=== PATIENT | female | born 1935 | race Caucasian/White ===

== ENCOUNTER → 2016-10-07 09:44 | Outpatient (CLI) | payer MEDICARE, BC | END | disposition home or self-care (01) | LOC: D.NM 09:44 | DX: C50.911 Malignant neoplasm of unspecified site of right female breast (principal) ==

== ENCOUNTER → 2017-05-04 08:49 | Outpatient (CLI) | payer MEDICARE, BC ==
[~2017-05-04 08:49] MED LIST: ANASTROZOLE; BAYER CHEWABLE81 MG PO; COREG 3.1253.125 MG PO; FISH OIL 1,0001 CA1 PO; HYDROCHLOROTH12.5 M1 PO; IBRANCE; NEXIUM20 MG PO; PRINIVIL20 MG PO; ZOCOR40 MG PO
--- NOTE | 2017-05-11 12:47 | EC ---
PATIENT:RACHEL ESCALANTE DATE OF SERVICE: 05/04/17 SEX: F MEDICAL RECORD: [id number] DATE OF : 35 [facility] AGE OF PATIENT: 81 ADMISSION DATE: 05/04/17 REFERRING PHYSICIAN: INTERPRETING PHYSICIAN: PATO JAMISON MD ECHOCARDIOGRAM REPORT ECHO CHARGES 4 ECHO COMPLETE CLINICAL DIAGNOSIS: CAD,HTN,AORTIC ABD ANEURSYM,CAROTID STENOSIS ECHOCARDIOGRAPHIC MEASUREMENTS (adult normal given) AC root (d.<3.7cm) 2.7 cm LV Septum d (<1.2 cm> 1.3 cm Valve Excursion 1.2 cm LV Septum (systole) 1.8 cm Left Atria (s.<4.0cm> 3.2 cm LVPW d(<1.2cm) 1.5 cm RV (d.<2.3cm) 3.3 cm LVPW (sytole) 1.8 cm LV diastole(<5.6CM) 4.5 cm MV E-F(>70mm/sec) cm LV systole 2.2 cm LVOT Diameter 1.5 cm MV exc.(>10mm) 1.5 cm Est.ejection fraction (50-75%) % Pericardial Effusion N DOPPLER: LVIT cm/sec A 102 cm/sec E 79.0 cm/sec LA cm/sec RVSP 16 mmHg LVOT 119 cm/sec AOP1/2T m/s Asc. Ao 137 cm/sec RVOT 86 cm/sec RA cm/sec PA 118 cm/sec AV Gradient Peak 751 mmHg AV Mean 3.73 mmHg AV Area 1.5 cm MV Gradient Peak 5.05 mmHg MV Mean 2.05 mmHg MV Area cm COMMENTS: Grounds Keeper: 2 ELIZ VENTURA Clinical Rehabilitation Aide: 4 Dr. Jamison TAPE# PACS DATE OF SERVICE: 05/04/2017 PROCEDURE: Transthoracic echocardiogram. FINDINGS: 1. The left ventricle has evidence of left ventricular hypertrophy with inflow characteristics consistent with diastolic dysfunction. Ejection fraction 65% without regional wall motion abnormalities. 2. The left atrium is normal size and normal function. 3. Aortic valve is thickened and sclerotic without evidence of stenosis. ECHOCARDIOGRAM REPORT [id number] RACHEL ESCALANTE 4. The mitral valve shows trace mitral regurgitation. 5. The tricuspid valve shows trace tricuspid regurgitation with normal right ventricular systolic pressures. 6. The pericardium is normal. 7. The right ventricle shows mild right ventricular enlargement and right ventricular hypertrophy with normal function. 8. The right atrium is normal size, normal function. 9. Pulmonic valve is normal. CONCLUSIONS: The patient has evidence of hypertensive heart disease without significant valvular abnormalities, but there is evidence of aortic sclerosis without stenosis. TRANSINT:[id number] Voice Confirmation ID: [id number] DOCUMENT ID: [id number] PATO JAMISON MD at 1247 CC: [id number] DICTATION DATE: 05/05/17 075 LOANS OFFICER: 05/05/17 0831 DEP CLI 05/04/17 [id number] [place] [address]
== END | disposition home or self-care (01) ==
LOC: D.ECHO 08:49
DX: I65.23 Occlusion and stenosis of bilateral carotid arteries (principal); I10 Essential (primary) hypertension; I25.10 Atherosclerotic heart disease of native coronary artery without angina pectoris; I71.4 Abdominal aortic aneurysm, without rupture

== ENCOUNTER 2017-05-17 07:03 | Outpatient (CLI) | payer MEDICARE, BC ==
--- NOTE | ~2017-05-17 | HEMODYNAMI ---
PATIENT:RACHEL ESCALANTE MEDICAL RECORD: [id number] : 35 LOCATION:[facility] ADMISSION DATE: 05/17/17 Generatedon:05/17/201710:35 Patient name: RACHEL ESCALANTE Patient #: [id number] SSN: : 1935 Date of study: 05/17/2017 Page: Of Hemodynamic Procedure Report Patient Data Patient Demographics Procedure consent was obtained First Name: RACHEL Gender: Female Last Name: BORIS : 1935 Patient #: [id number] Age: 81 year(s) Race: Unknown Additional ID: [id number] Contact details Address: [facility] [address] State: [place] City: [place] Zip code: [address] Past Medical History Allergies Allergen Reaction Date Comments Reported Sulfa drugs 05/17/2017 Admission Admission Data Admission Date: 05/17/2017 Admission Time: 7:03 Procedure Procedure Types Cath Procedure Diagnostic Procedure LHC LHC w/Coronaries Miscellaneous Procedures Moderate Sedation up to 30 minutes Peripheral Cath Diagnostic Procedure Abd/Extremity Aortagram Procedure Description Procedure Date Procedure Date: 05/17/2017 Procedure Start Time: 10:11 Procedure End Time: 10:32 Procedure Staff Name Function Jace Quezada MD Performing Physician Tramaine Candelaria RT Scrub Mary Ellen Bolaños RN Nurse Anjelica Stewart RT Monitor Procedure Data Cath Procedure Fluoroscopy Diagnostic fluoroscopy Total fluoroscopy Time: 2.8 time: 2.8 min min Diagnostic fluoroscopy Total fluoroscopy dose: 132 dose: 132 mGy mGy Contrast Material Contrast Material Type Amount (ml) Isovue 300 69 Entry Location Entry Primary Successful Side Size Upsize Upsize Entry Closure Succes sful Closure Location (Fr) 1 (Fr) 2 (Fr) Remarks Device Remarks Femoral Right 5 Fr Exoseal artery Estimated blood loss: 10 ml Diagnostic catheters Device Type Used For End Catheter Placement Cordis 5Fr JL 4.0 Left Coronary Catheter (MP) Angiography Cordis 5Fr 3DRC Catheter Right Coronary (MP) Angiography Cook PIGTAIL CALIBRATED LV Angiography 5FR 100CM catheter Cook PIGTAIL CALIBRATED Abdominal 5FR 100CM catheter aortogram Procedure Complications No complications Procedure Medications Medication Administration Route Dosage Oxygen NC 2 l/min Lidocaine 2% added to field 20 Heparin Flush Bag added to field 2 bags (1000units/500ml NS) 0.9% NaCl I.V. 100 ml/hr Benadryl I.V. 50 mg Versed I.V. 1 mg Hemodynamics Rest Heart Rate: 66 (bpm) Pressure Samples Time Site Value (mmHg) Purpose Heart Use Rate(bpm) 10:16 AO 171/88(119) Snapshot 98 10:22 LV 167/54,57 EDP 75 10:23 LV 174/60,60 EDP 77 10:23 LV 161/52,54 Snapshot 74 10:23 LV 132/-9,16 Snapshot 77 10:23 AO 160/71(108) Pullback 75 10:23 LV 162/2,12 Pullback 75 Gradients Valve Time Site 1 Site 2 Mean SEP/DFP Peak To Heart Use (mmHg) (sec/min) Peak Rate (mmHg) (bpm) Aortic 10:23 LV AO 7 21 2 75 162/2,12 160/71(108) Calculations Valve P-P Mean Valve Index Valve Source Name Gradient Area Flow (cm2) Aortic 2 7 2 7 Snapshots Pre Cath Intra NCS Post Cath Vital Signs Time Heart Resp SPO2 etCO2 NIBP (mmHg) Rhythm Pain Sedation Rate (ipm) (%) (mmHg) Status Level (bpm) 9:49:58 67 18 96 26.4 159/79(129) NSR 0 (11) 10(A) , No pain 9:54:22 73 15 93 27.2 132/77(115) NSR 0 (11) 10(A) , No pain 9:59:42 69 18 94 25 166/84(134) NSR 0 (11) 10(A) , No pain 10:04:04 70 16 94 18.1 141/83(125) NSR 0 (11) 10(A) , No pain 10:09:26 73 15 94 22.6 147/79(121) NSR 0 (11) 10(A) , No pain 10:13:56 73 16 94 27.9 163/87(120) NSR 0 (11) 10(A) , No pain 10:18:20 73 19 98 0 150/84(117) NSR 0 (11) 10(A) , No pain 10:22:46 73 18 95 0.7 157/83(129) NSR 0 (11) 10(A) , No pain 10:27:11 74 18 96 10.5 152/81(121) NSR 0 (11) 10(A) , No pain 10:31:37 72 18 96 9.8 157/85(135) NSR 0 (11) 10(A) , No pain Medications Time Medication Route Dose Verified Delivered Reason Notes Effe ctiveness by by 9:52:11 Oxygen NC 2 Jace Buffie used for l/min Pilar Bolaños RN procedure MD 9:52:25 Lidocaine 2% added 20ml Jace Jace for local to vial Pilar Quezada MD anesthetic field MD 9:52:33 Heparin Flush added 2 Jace Jace used for Bag to bags Pilar Quezada MD procedure (1000units/500ml field NS) 9:52:43 0.9% NaCl I.V. 100 Jace Buffie Per ml/hr Pilar Bolaños RN physician MD 9:53:00 Benadryl I.V. 50 mg Jace Buffie used for Pilar Bolaños RN procedure 10:10:11 Versed I.V. 1 mg Jace Buffie for Pilar Bolaños RN sedation MD Procedure Log Time Note 9:29:02 Mary Ellen Bolaños RN sent for patient. Start room use. 9:29:03 Time tracking: Regular hours 9:29:06 Plan of Care:Hemodynamics will remain stable., Cardiac rhythm will remain stable., Comfort level will be maintained., Respiratory function will remain adequate., Patient/ family verbilizes understanding of procedure., Procedure tolerated without complication., Recovers from procedure without complications.. 9:39:49 Patient received from Pre/Post Procedure Room to CCL 3 Alert and oriented. Tansferred to table in Supine position. 9:39:50 Warm blankets applied, and rodney hugger turned on for patient comfort. 9:39:51 Correct patient and procedure confirmed by team. 9:39:53 Signed procedure consent form obtained from patient. 9:39:54 ECG and BP/O2 sat monitors applied to patient. 9:48:34 Vital chart was started 9:48:35 Full Disclosure recording started 9:51:21 Baseline sample Acquired. 9:52:11 Oxygen 2 l/min NC was administered by Mary Ellen Bolaños RN; used for procedure; 9:52:25 Lidocaine 2% 20ml vial added to field was administered by Jace Quezada MD; for local anesthetic; 9:52:33 Heparin Flush Bag (1000units/500ml NS) 2 bags added to field was administered by Jace Quezada MD; used for procedure; 9:52:43 0.9% NaCl 100 ml/hr I.V. was administered by Mary Ellen Bolaños RN; Per physician; 9:53:00 Benadryl 50 mg I.V. was administered by Mary Ellen Bolaños RN; used for procedure; 9:55:28 H&P Date Dictated: 05/17/2017 Within 30 days and on chart., H&P Addendum completed by physician on day of procedure. (MUST COMPLETE FOR ALL OUTPATIENTS). 9:55:29 Pre-procedure instructions explained to patient. 9:55:30 Pre-op teaching completed and patient verbalized understanding. 9:55:31 Family in waiting room. 9:55:32 Patient NPO since Midnight. 9:55:36 Rhythm: sinus rhythm 9:55:53 Patient allergic to Sulfa drugs 9:55:55 Is the patient allergic to Iodine/contrast media? No. 9:55:57 Is patient on blood thinner?Yes 9:55:59 ACC The patient was administered the following blood thiners within the last 24 hours: ACCPlavix 9:56:01 Patient diabetic? No. 9:56:04 Previous problem with sedation/anesthesia? No ? 9:56:06 Snore? Yes 9:56:12 Sleep apnea? No 9:56:13 Deviated septum? No 9:56:14 Opens mouth fully? Yes 9:56:14 Sticks out tongue? Yes 9:56:16 Airway obstruction? No ? 9:56:18 Dentures? No ? 9:56:22 Pre procedure: right dorsailis pedis pulse 2+ Normal; easily identifiable; not easily obliterated 9:56:34 Patient pain scale 0/10 ?. 9:57:06 IV patent on arrival in left hand with 0.9% NaCl at [facility]. 9:57:50 Lab results completed and on chart. 9:57:53 Right groin area was prepped with chlora-prep and draped in sterile fashion 9:57:54 Alarms reviewed by R. N. 9:57:54 Sharps counted by scrub and verified by R.N. 9:58:10 Use device set Femoral Dx 9:58:11 Acist Syringe opened to sterile field. 9:58:12 Bag Decanter opened to sterile field. 9:58:12 Medline Cath Pack opened to sterile field. 9:58:13 Terumo 5Fr [place] Sheath opened to sterile field. 9:58:14 St Ashkan 260cm J .035 wire opened to sterile field. 9:58:14 Acist Hand Control opened to sterile field. 9:58:15 Acist Manifold opened to sterile field. 9:58:15 Diagnostic Infinity 5Fr Multipack catheter opened to sterile field. 9:58:16 Tegaderm 4 x 4 opened to sterile field. 10:03:48 Zero performed for pressure channel P1 10:09:12 Final Timeout: patient, procedure, and site verified with staff and physician. All members of the team are in agreement. 10:09:17 Right groin site verified by team. 10:09:20 Physical assessment completed. ASA score P 2 - A patient with mild systemic disease as per Jace Quezada MD. 10:09:24 Sedation plan: IV Moderate Sedation Versed, Fentanyl 10:10:11 Versed 1 mg I.V. was administered by Mary Ellen Bolaños RN; for sedation; 10:11:28 Procedure started. 10:11:32 Local anesthetic to right femoral artery with Lidocaine 2% by Jace Quezada MD.INITIAL ACCESS ONLY 10:13:34 Zero performed for pressure channel P1 10:14:55 Access obtained with 4Fr micropunture. 10:14:59 A 5 Fr sheath was inserted into the Right Femoral artery 10:15:31 A Cordis 5Fr JL 4.0 Catheter (MP) was advanced over the wire and used for Left Coronary Angiography. 10:17:43 Catheter removed. 10:18:51 A Cordis 5Fr 3DRC Catheter (MP) was advanced over the wire and used for Right Coronary Angiography. 10:20:26 Catheter removed. 10:22:21 A Cook PIGTAIL CALIBRATED 5FR 100CM catheter was advanced over the wire and used for LV Angiography. 10:23:36 LV gram done using TORRES 10:23:45 LV hemodynamics recorded. 10:23:47 Injector settings: Ml/sec: 12, Volume: 8, 10:23:59 A Cook PIGTAIL CALIBRATED 5FR 100CM catheter was advanced over the wire and used for Abdominal aortogram. 10:25:09 Injector settings: Ml/sec: 15, Volume: 30, 10:26:03 Catheter removed. 10:26:11 Cordis 5Fr Exoseal opened to sterile field. 10:26:21 Sheath removed intact; hemostasis achieved with Exoseal to the Right Femoral artery. 10:26:24 Procedure ended.(Physican Out) 10:26:35 Fluoroscopy time 02.80 minutes. 10::39 Flurop Dose total: 132 10::39 Fluoroscopy dose: 132 mGy 10:27:20 Contrast amount:Isovue 300 69ml. 10:27:21 Sharps counted by scrub and verified by R.N. 10:27:23 Insertion/operative site no bleeding no hematoma. 10:27:27 Post-op/insertion site Right Femoral artery dressed using a 4 x 4 and Tegaderm. 10:27:30 Post right femoral artery:stable, clean and dry 10:27:40 Post Procedure Pulses reassessed and unchanged 10:27:57 Post-procedure physical assessment completed. ASA score P 2 - A patient with mild systemic disease as per Jace Quezada MD. 10:28:03 Post procedure rhythm: unchanged. 10:28:05 Estimated blood loss: 10 ml 10:28:06 Post procedure instruction explained to patient.Patient verbalizes understanding. 10:28:06 Patient needs reinforcement of post procedure teaching. 10:28:58 Procedure type changed to Cath procedure, Diagnostic procedure, LHC, LHC w/Coronaries, Miscellaneous Procedures, Moderate Sedation up to 30 minutes, Peripheral Cath Diagnostic Procedure, Abd/Extremity, Aortagram 10:29:05 Procedure Complication : No complications 10:29:12 See physician's report for complete and final results. 10:32:14 Procedure and supply charges have been captured, reviewed, submitted and are correct. 10:32:14 Vital chart was stopped 10:32:16 Report given to Pre/Post Procedure Room. 10:32:45 Patient transfered to Pre/Post Procedure Room with Stretcher. 10:32:53 Procedure ended. 10:32:53 Full Disclosure recording stopped 10:34:56 End room use (Document Last) Device Usage Item Name Manufacture Quantity Catalog Hospital Part Current Minimal Lo t# / Number Charge Number Stock Stock Serial# Code Acist Acist 1 16573 920228 187954 291061 20 Syringe Medical Systems Inc Bag Microtek 1 2002S 948695 88413 651718 5 Decanter Medical Inc. Medline Cardinal 1 [id number] 740239 44993 440295 5 Cath Pack Health Terumo 5Fr Terumo 1 [id number] 322198 589524 893608 [address] St Ashkan 1 944782 057735 467430 118510 30 260cm J .035 wire Acist Hand Acist 1 33981 985414 749011 728494 5 Control Medical Systems Inc Acist Acist 1 34942 649876 010295 378378 5 Manifold Medical Systems Inc Diagnostic Cardinal 1 [id number] 960434 85617 381830 30 Infinity Health 5Fr Multipack catheter Tegaderm 4 3M 1 1626W 286422 430379 901552 5 x 4 Cordis 5Fr Cardinal 1 489251 5 JL 4.0 Health Catheter (MP) Cordis 5Fr Cardinal 1 823564 5 3DRC Health Catheter (MP) [facility] 1 [id number] 622584 395841 5 PIGTAIL CALIBRATED 5FR 100CM catheter Cordis 5Fr Cardinal 1 EX500 602080 958693 291071 10 [facility] Health Signature Audit [place] Stage Time Signature Unsigned Intra-Procedure 05/17/2017 Anjelica 10:35:08 AM Counts RT(R) Signatures Monitor : Anjelica Signature : Counts RT Date : Time : [place] [id number] [facility] [address]
[2017-05-17] MEDS ORDERED: COREG 3.1253.125 MG PO (07:10)
[2017-05-17] MEDS ORDERED: HYDROCHLOROTH12.5 M1 PO (07:10)
[2017-05-17] MEDS ORDERED: PRINIVIL20 MG PO (07:10)
[2017-05-17] MEDS ORDERED: NEXIUM20 MG PO (07:11)
[2017-05-17] MEDS ORDERED: ZOCOR40 MG PO (07:11)
[2017-05-17] MEDS ORDERED: BAYER CHEWABLE81 MG PO (07:12)
[2017-05-17] MEDS ORDERED: FISH OIL 1,0001 CA1 PO (07:13)
[2017-05-17 07:34] VITALS: BP 138/64; BMI 26.8
[2017-05-17] MEDS ORDERED: ANASTROZOLE (07:48)
[2017-05-17] MEDS ORDERED: IBRANCE (07:49)
[2017-05-17 08:05] LABS: ANION GAP 15.1 mmol/L (8-16); CALCIUM 10.1 mg/dL (8.5-10.1); CARBON DIOXIDE 23.7 mmol/L (21.0-32.0); CREATININE - SERUM 0.9 mg/dL (0.6-1.3); POTASSIUM - SERUM 3.8 mmol/L (3.5-5.1)
[2017-05-17 08:09] LABS: BASOPHILS 1.5 % (0-2); EOSINOPHILS 1.1 % (0-7); HEMATOCRIT 39.3 % (36.0-48.0); HEMOGLOBIN 14.1 g/dL (12-16); IMMATURE GRANULOCYTES 0.2 % (0-5); MCH 34.8 pg (26.0-34.0); MCHC 35.9 g/dL (31.0-37.0); MEAN PLATELET VOLUME 8.8 fL (7.4-10.4); MONOCYTES 10.1 % (2-11); NEUTROPHILS 60.1 % (40-80); PLATELET COUNT 203 10x3/uL (130-400); RBC 4.05 10x6/uL (4.00-5.40); RDW 14.4 % (11.5-14.5); WBC 5.4 10x3/uL (4.8-10.8)
--- NOTE | 2017-05-17 10:45 | NUR ---
1045 RECEIVED PT FROM CATERPILLAR OPERATOR. PT IS DROWSY. PT DENIES ANY C/O CHEST PAIN OR NAUSEA. DRESSING TO RIGHT GROIN IS CDI, AREA IS SOFT AND NONTENDER. PEDAL PULSES PALPABLE, CAP REFILL IS BRISK. NSR, RATE OF 73. BP 181/73. FAMILY AT BEDSIDE. INSTRUCTED PT TO KEEP HEAD TO PILLOW AND RIGHT LEG STRAIGHT AND PT VERBALIZES UNDERSTANDING. CALL LIGHT IN REACH.
--- NOTE | 2017-05-17 11:09 | NUR ---
1100 PO FLUIDS SERVED. PT DENIES ANY C/O. DRESSING CDI, AREA SOFT AND NONTENDER. PEDAL PULSES PALPABLE, CAP REFILL IS BRISK.
--- NOTE | 2017-05-17 11:11 | NUR ---
1114 DRESSING RIGHT GROIN IS CDI, AREA SOFT AND NONTENDER. PEDAL PULSES PALPABLE, CAP REFILL IS BRISK. FAMILY AT BEDSIDE, CALL LIGHT IN REACH.
--- NOTE | 2017-05-17 11:31 | NUR ---
PT DENIES ANY C/O. DRESSING RIGHT GROIN IS CDI, AREA IS SOFT AND NONTENDER. PEDAL PULSES PALPBLE, CAP REFILL IS BRISK. FAMILY AT BEDSIDE. CALL LIGHT IN REACH, VSS.
--- NOTE | 2017-05-17 11:53 | NUR ---
1145 PT DENIES ANY C/O. DRESSING TO RIGHT GROIN IS CDI, AREA IS SOFT AND NONTENDER. PEDAL PULSES PALPABLE, CAP REFILL IS BRISK. BP IS 150/77, HR IS 71. FAMILY AT BEDSIDE. CALL LIGHT IN REACH.
--- NOTE | 2017-05-17 12:04 | NUR ---
PT VOIDED APPROX 400 CC CLEAR YELLOW URINE USING BEDPAN. DRESSING TO RIGHT GROIN IS CDI, AREA IS SOFT AND NONTENDER. CAP REFILL IS BRISK. PEDAL PULSES PALPABLE. BP 146/66, HR 71, NORMAL SINUS RHYTHM. FAMILY AT BEDSIDE, CALL LIGHT IN REACH.
--- NOTE | 2017-05-17 12:48 | NUR ---
1215 hob elevated, sandwich served. RIGHT GROIN DRESSING IS CDI, AREA IS SOFT AND NONTENDER. FAMILY AT BEDSIDE, CALL LIGHT IN REACH.
--- NOTE | 2017-05-17 12:49 | NUR ---
1245 DC INSTRUCTIONS REVIEWED WITH PT AND SON WHO VERBALIZE UNDERSTANDING. DRESSING TO RIGHT GROIN IS CDI, AREA SOFT AND NONTENDER. IV DC'D WITH CATH INTACT. PT DRESSING FOR DC WITH ASSIST FROM SON.
--- NOTE | 2017-05-17 13:07 | NUR ---
1305 PT HAS DRESED FOR DC TO HOME. HAS AMBULATED TO THE BATHROOM AND VOIDED QS. PT ESCORTED TO PRIVATE AUTO VIA WC BY NURSE WITH SON DRIVING HER HOME.
== END 2017-05-17 13:05 | disposition home or self-care (01) ==
LOC: D.CATH 07:03
PROVIDERS: Internal Medicine Cardiovascular Disease
DX: I25.119 Atherosclerotic heart disease of native coronary artery with unspecified angina pectoris (principal); I71.4 Abdominal aortic aneurysm, without rupture; F17.200 Nicotine dependence, unspecified, uncomplicated; R94.30 Abnormal result of cardiovascular function study, unspecified; Z85.3 Personal history of malignant neoplasm of breast; Z01.812 Encounter for preprocedural laboratory examination

== ENCOUNTER → 2017-10-09 16:49 | Outpatient (CLI) | payer MEDICARE, BC ==
[2017-10-09 19:26] LABS: CHOL - HDL RATIO 3.6 ratio (2.3-4.1); LDL-HDL RATIO 1.6 ratio (1.5-3.5)
== END | disposition home or self-care (01) ==
LOC: D.LABREF 16:49
PROVIDERS: Internal Medicine Cardiovascular Disease
DX: I25.10 Atherosclerotic heart disease of native coronary artery without angina pectoris (principal)

== ENCOUNTER → 2018-05-01 13:43 | Outpatient (CLI) | payer MEDICARE, BC | END | disposition home or self-care (01) | LOC: D.CT 13:43 | DX: I71.4 Abdominal aortic aneurysm, without rupture (principal); I25.10 Atherosclerotic heart disease of native coronary artery without angina pectoris; I10 Essential (primary) hypertension ==

== ENCOUNTER → 2018-05-04 14:48 | Outpatient (CLI) | payer MEDICARE, BC | END | disposition home or self-care (01) | LOC: D.US 05-02 09:30 | DX: C50.911 Malignant neoplasm of unspecified site of right female breast (principal) ==

== ENCOUNTER 2018-06-15 08:00 | Outpatient (CLI) | payer MEDICARE, BC ==
[~2018-06-15] VITALS: Ht 165.1 cm; Wt 65.8 kg
--- NOTE | ~2018-06-15 | HP ---
PATIENT: RACHEL ESCALANTE MEDICAL RECORD: [id number] ACCOUNT: [id number] LOCATION:[facility]- : 35 ADMISSION DATE: 06/15/18 PCP: TRIXIE BECK MD HISTORY AND PHYSICAL EXAMINATION RACHEL Krueger (82yo, F) ID# [id number]. Date/Time06/13/2018 01:47OPTYL02 1935Service Dept.[facility] ClinicProviderDAMILADYS BECK MDInsuranceMed Primary[place] Insurance # : [id number] Referring Provider Name : ANDREI SHERMAN Employer Name : UNKNOWN Med Secondary: [place]LE[place]) Insurance # : [id number] Employer Name : UNKNOWN Prescription: [place] - Member is eligible. Chief Complaint Followup: Abdominal aortic aneurysm preop carotid CTA results Patient's Care Team Referring Provider (): ANDREI SHERMAN: , Surgical Oncologist: ANDREI SHERMAN MD: [address] [place] [address], , Vitals BP:132/78 sitting L arm 06/13/2018 01:23 pmHR:82/reg 06/13/2018 01:24 pmHt:5 ft 5 in 06/13/2018 01:18 pmWt:145 lbs 06/13/2018 01:24 pmBMI:24.1 06/13/2018 01:24 pmAllergies Reviewed Allergies SULFA (SULFONAMIDE ANTIBIOTICS)Medications Reviewed Medications anastrozole 1 mg tablet TK 1 T PO QD05/18/18 filledPRIMEAspir-81 81 mg tablet,delayed release Take 1 tablet(s) every day by oral route.05/07/18 enteredKathy Wilsonatorvastatin 40 mg tablet Take 1 tablet(s) every day by oral route.05/07/18 enteredKathy Wilsoncarvedilol 3.125 mg /23/18 filledPRIMEcarvedilol 6.25 mg tablet TK 1 T PO BID04/16/18 filledPRIMEFluad 65yr up(PF)45 mcg(15 mcgx3)/0.5 mL intramuscular syringe ADM 0.5ML IM UTD1 filledsurescriptsFluzone High-Dose 6067-7472 (PF) 180 mcg/0.5 mL intramuscular syringe ADM 0.5ML IM UTD04/13/18 filledsurescriptsIbrance 125 mg rekvqpd61/22/18 filledPRIMElisinopril 10 mg vtrnba22/01/18 filledPRIMENexIUM 24HR1 enteredKathy Wilsonsimvastatin 40 mg tivknk70/19/18 filledPRIMETravatan Z 0.004 % eye drops04/28/18 filledPRIMEtriamcinolone acetonide 0.1 % topical dytwucrw62/11/18 filledPRIMEProblems Reviewed Problems Abdominal aortic aneurysm - Onset: 05/07/2018 Family History Reviewed Family History Social History Reviewed Social History Cardiology Smoking Status: Current every day smoker Smoker (1 PPD) HISTORY AND PHYSICAL [id number] RACHEL ESCALANTE High Cholesterol: Y High blood pressure: Y Overweight: Y Obese: N Diabetes: N Surgical History Reviewed Surgical History cardiac cath w stent 2010, cardiac cath clean 05/17/17 POSTING CLERK History (not configured) Past Medical History Reviewed Past Medical History Cancer: Y - breast, with bony mets to pelvis and hips bilaterally Coronary Artery Disease: Y Hyperlipidemia: Y Hypertension: Y Documents for Discussion N/A Screening None recorded. HPI Cerebral Vascular Disease Reported by patient. Quality: weakness; dizziness Severity: partial abdominal aortic aneurysm with enlargement, asymptomatic carotid stenosis found on preoperative screening ROS ROS as noted in the HPI Physical Exam Patient is an 82-year-old female. carotid without murmurs No cervical lymphadenopathy Heart regular rate and rhythm Lungs clear Assessment / Plan 1. Abdominal aortic aneurysm I71.4: Abdominal aortic aneurysm, without rupture 2. Carotid artery stenosis I65.29: Occlusion and stenosis of unspecified carotid artery CAROTID STENOSIS: CARE INSTRUCTIONS Discussion Notes reviewed the indications for carotid endarterectomy, answered concerns about delaying surgery on an enlarging abdominal aortic aneurysm. Plan endarterectomy and interval abdominal aortic aneurysm endovascular repair in about 6 weeks, sooner if symptomatic. They stated understanding and gives consent HISTORY AND PHYSICAL [id number] RACHEL ESCALANTE DANIEL W MD at 1235 CC: [id number] DICTATION DATE: 06/13/18 1310 MUTUEL CASHIER: [place] 06/14/18 1555 ADM IN [place] [id number] [place] [id number]
[~2018-06-15 08:00] MED LIST changes: +CALCIUM 600 +1 EAC3 PO; +CENTRUM SILVER1 EAC3 PO
[2018-06-15 09:19] VITALS: BP 167/88; Ht 165.1 cm; Wt 65.8 kg
[2018-06-15 09:31] LABS: HEMATOCRIT 42.6 % (36.0-48.0); HEMOGLOBIN 14.9 g/dL (12-16); MCH 33.8 pg (26.0-34.0); MCV 96.6 fL (80.0-100.0); RBC 4.41 10x6/uL (4.00-5.40); RDW 14.9 % (11.5-14.5); WBC 6.1 10x3/uL (4.8-10.8)
[2018-06-15 09:36] LABS: APTT 25.8 SECONDS (22.8-39.4); INR 0.93 (0.85-1.17); PROTIME 12.2 SECONDS (11.6-15.0)
[2018-06-15 09:45] LABS: ALBUMIN 3.8 g/dL (3.4-5.0); ANION GAP 10.1 mmol/L (8-16); BILIRUBIN - TOTAL 0.27 mg/dL (0.2-1.3); CALCIUM 10.4 mg/dL (8.5-10.1); CARBON DIOXIDE 31.4 mmol/L (21.0-32.0); CREATININE - SERUM 0.8 mg/dL (0.6-1.3); POTASSIUM - SERUM 4.5 mmol/L (3.5-5.1); PROTEIN - SERUM 8.3 g/dL (6.4-8.2)
[2018-06-15 10:57] LABS: APPEARANCE CLOUDY (CLEAR); BACTERIA MANY /hpf (NONE SEEN); BILIRUBIN NEGATIVE (NEGATIVE); COLOR YELLOW (YELLOW); GLUCOSE NEGATIVE (NEGATIVE); KETONE NEGATIVE (NEGATIVE); NITRITE POSITIVE (NEGATIVE); PROTEIN NEGATIVE (NEGATIVE); RED CELLS - URINE 0-5 /hpf (0-5); UROBILINOGEN NORMAL (NORMAL); WHITE CELLS - URINE >50 /hpf (0-5)
[2018-06-15] MEDS ORDERED: LEVAQUIN750 MG PO (12:25)
== END 2018-06-15 13:06 | disposition home or self-care (01) | DRG 68 ==
LOC: D.OPS 08:00 → EDSTATUS 11:15 → D.SDCHOLD 11:15 → D.OPS 13:06
PROVIDERS: Thoracic Surgery (Cardiothoracic Vascular Surgery)
DX: I65.23 Occlusion and stenosis of bilateral carotid arteries (principal); N39.0 Urinary tract infection, site not specified; I71.4 Abdominal aortic aneurysm, without rupture; Z53.09 Procedure and treatment not carried out because of other contraindication

== ENCOUNTER → 2018-06-25 08:36 | Outpatient (CLI) | payer MEDICARE, BC ==
[2018-06-15 09:19] VITALS: BMI 24.1
[~2018-06-25 08:36] MED LIST changes: +LEVAQUIN750 MG PO
== END | disposition home or self-care (01) ==
LOC: D.LAB 08:30
DX: N39.0 Urinary tract infection, site not specified (principal)

== ENCOUNTER 2018-07-13 07:50 | Inpatient (IN) | payer MEDICARE, BC ==
[~2018-07-13] VITALS: Ht 165.1 cm; Wt 56.8 kg
[2018-07-13] VITALS (45 sets, daily range): BP systolic 104–180; BP diastolic 44–82; Ht 165.1 cm; Wt 56.8 kg
--- NOTE | ~2018-07-13 | HP ---
PATIENT: RACHEL ESCALANTE MEDICAL RECORD: [id number] ACCOUNT: [id number] LOCATION:[facility] : 35 ADMISSION DATE: 07/13/18 PCP: Luis Fernando PERALES MD HISTORY AND PHYSICAL EXAMINATION NameRACHEL ESCALANTE (82yo, F) ID# [id number]. Date/Time07/11/2018 03:79ARANN53 1935Service Dept.NPP_[facility] ClinicProviderDAMILADYS BECK MDInsuranceMed Primary: MEDICARE-[place] (MEDICARE) Insurance # : [id number] PCP : STEFFEN PERALES JR Referring Provider Name : ANDREI SHERMAN Employer Name : UNKNOWN Med Secondary: BCBS-[place] (MEDICARE SUPPLEMENT) Insurance # : [id number] PCP : STEFFEN PERALES JR Referring Provider Name : ANDREI SHERMAN Employer Name : UNKNOWN Prescription: ARBCBS - Member is eligible. Chief Complaint Carotid stenosis Followup: Abdominal aortic aneurysm preop for RCEA Patient's Care Team Primary Care Provider (): STEFFEN PERALES JR: [address] [place] [id number], , Referring Provider (): ANDREI SHERMAN: , Surgical Oncologist: ANDREI SHERMAN MD: [address] [place] [address], , Patient's Pharmacies [facility] (ERX): [address] [facility] [address], , Vitals BP:148/88 sitting L arm 07/11/2018 03:40 pmBP Cuff Size:adult 07/11/2018 03:40 pmHR:88,reg 07/11/2018 03:40 pmHt:5 ft 5 in 07/11/2018 03:31 pmWt:147 lbs 07/11/2018 03:40 pmNotes:no new complaints, ready for op 07/11/2018 03:41 pmBMI:24.5 07/11/2018 03:40 pmAllergies Reviewed Allergies SULFA (SULFONAMIDE ANTIBIOTICS)Medications Reviewed Medications amoxicillin 875 mg-potassium clavulanate 125 mg tablet Take 1 tablet(s) every 12 hours by oral route for 30 days.06/29/18 filledPRIMEanastrozole 1 mg tablet TK 1 T PO QD06/18/18 filledPRIMEAspir-81 81 mg tablet,delayed release Take 1 tablet(s) every day by oral route.05/07/18 [facility] 40 mg tablet Take 1 tablet(s) every day by oral route.05/07/18 [facility] 3.125 mg xdwrca14/19/18 filledPRIMEcarvedilol 6.25 mg tablet TK 1 T PO BID04/16/18 filledPRIMEFluad 65yr up(PF)45 mcg(15 mcgx3)/0.5 mL intramuscular syringe ADM 0.5ML IM UTD1 filledsurescriptsFluzone High-Dose (PF) 180 mcg/0.5 mL intramuscular syringe ADM 0.5ML IM UTD04/13/18 filledsurescriptsIbrance 125 mg /27/18 filledPRIMElevoFLOXacin 750 mg iziqvw71/16/18 filledPRIMElisinopril 10 mg tablet TAKE ONE TABLET BY MOUTH ONCE DAILY07/05/18 filledsurescriptsMyrbetriq 50 mg tablet,extended release HISTORY AND PHYSICAL [id number] RACHEL ESCALANTE Take 1 tablet(s) every day by oral route for 14 days.06/29/18 prescribedRobCandida Rhodes 24HR1 [facility] Wilsonsimvastatin 40 mg avewwz21/19/18 filledPRIMETravatan Z 0.004 % eye drops INSTILL ONE DROP IN EACH EYE AT BTTUYFN20/06/18 filledsurescriptstriamcinolone acetonide 0.1 % topical mecvflre95/11/18 filledPRIMEProblems Reviewed Problems Carotid artery stenosis - Onset: 07/11/2018 Abdominal aortic aneurysm - Onset: 05/07/2018 Family History Reviewed Family History Father- Myocardial infarctionMother- Malignant neoplastic diseaseSocial History Reviewed Social History Cardiology Family history of heart disease?: Y Smoking Status: Current every day smoker Smoker (1 PPD) High Cholesterol: Y High blood pressure: Y Overweight: Y Obese: N Diabetes: N Surgical History Reviewed Surgical History cardiac cath w stent 2010, cardiac cath clean 05/17/17 MANAGER BUSINESS MANAGEMENT History (not configured) Past Medical History Reviewed Past Medical History Cancer: Y - breast, with bony mets to pelvis and hips bilaterally Coronary Artery Disease: Y Hyperlipidemia: Y Hypertension: Y Documents for Discussion N/A Screening None recorded. HPI asymptomatic AAA and carotid stenosis UTI, resistant, seen by urology, now with clear urinalysis No neurologic symptoms ROS Additionally reports: unchanged, see chart ROS as noted in the HPI Physical Exam Patient is an 82-year-old female. Constitutional: Level of Distress NAD. Ambulation ambulating normally. Ears, Nose, Throat: Ears grossly normal hearing. Oropharynx: moist mucous membranes. Cardiovascular: Apical Impulse not displaced or no thrill. Heart Auscultation no murmurs, rubs, or gallops and RRR. Edema no edema. HISTORY AND PHYSICAL [id number] RACHEL ESCALANTE Lungs: Repiratory Effort no dyspnea. Percussion no hyperresonance or dullness or flatness. Auscultation no wheezing, r honchi, or rales / crackles and breathing sounds normal and good air movement. Abdomen: Bowl Sounds normal. Inspection and Palpation no tenderness or masses and soft and non-distended. Liver no hepatomegaly. Spleen no splenomegaly. Musculoskeletal System: Gait And Stance normal gait and stance. Digits and Nails normal nails and no cyanosis. Joints, Bones, and Muscles normal strength and movement of all extremities. Neurologic: Cranial Nerves grossly intact. Sensation grossly intact. Lymph Nodes: Lymph Nodes no cervical LAD or supraclavicular LAD. Eyes: Lids and Conjunctivae no discharge or pallor and non-injected. Pupils PERRLA. EOM EOMI. Sclera non-icteric. Neck: Neck no masses, enlarged lymph nodes, or carotid bruits and supple and trachea midline. Thyroid no enlargement or nodules and non-tender. Skin: Inspection and Palpation no rash, lesions, ulcers, or jaundice. Assessment / Plan 1. Abdominal aortic aneurysm I71.4: Abdominal aortic aneurysm, without rupture 2. Carotid artery stenosis I65.29: Occlusion and stenosis of unspecified carotid artery CAROTID STENOSIS: CARE INSTRUCTIONS Patient Instructions preadmission testing today, discussed continuing medications Discussion Notes carotid endarterectomy, patient and family understand rationale, benefits, and risks, as well as timing of endovascular aortic repair, consent given Return to Office Trixie BECK MD for Surgery at [facility] on 07/12/2018 at 09:30 AM Eric Montemayor MD for Generic Appt at [facility] on 07/13/2018 at 11:00 AM TRIXIE BECK MD at 1339 CC: [id number] DICTATION DATE: 07/11/18 1520 OUTSIDE SALES: DM 07/12/18 1305 PRE IN [place] [address] [place] [address]
--- NOTE | ~2018-07-13 | MORECARE ---
CASE MANAGEMENT DISCHARGE SUMMARY PATIENT: RACHEL ESCALANTE UNIT: [id number] ADM DATE: 07/13/18 AGE: 82 : 35 SEX: F ROOM/BED: D[facility] AUTHOR: AGNES,DOC PHYSICIAN: REFERRING PHYSICIAN: TRIXIE BECK MD DATE OF SERVICE: 07/18/18 Discharge Plan Patient Name: RACHEL ESCALANTE Facility: [facility]:[place] : 1935 Planned Disposition: Home Anticipated Discharge Date: Discharge Date: 07/17/2018 Expected LOS: Initial Reviewer: [email or web address] Initial Review Date: 07/16/2018 Generated: 07/18/18 11:40 am Comments DCP- Discharge Planning Updated by [email or web address]: Angela Arredondo on 07/16/18 2:[address] Patient Name: RACHEL ESCALANTE Admission Status: Elective Accout number: [id number] Admission Date: 07-13-2018 : 1935 Admission Diagnosis: Attending: TRIXIE BEKC Current LOS: 3 Anticipated DC Date: Planned Disposition: Home Primary Insurance: MEDICARE A & B Discharge Planning Comments: CM SPOKE WITH PATIENT AND DAUGHTER AT BEDSIDE AFTER OBTAINING CONSENT. PATIENT STATES SHE LIVES ALONE AND SHE PLANS ON RETURNING TO HER HOME AFTER DISCHARGE. PATIENT DENIES ANY DISCHARGE NEEDS. IMM EXPLAINED AND SERVED 07/16/18 @ 1234. CM WILL CONTINUE TO FOLLOW AND ASSIST WITH DISCHARGE PLANNING / NEEDS. Tv News Director: Angela Arredondo DCPIA - Discharge Planning Initial Assessment Updated by [email or web address]: Angela Arredondo on 07/16/18 3:07 pm * Is the patient Alert and Oriented? Yes * How many steps to enter\exit or inside your home? * PCP STEFFEN PERALES JR. - [place] * Pharmacy [facility]. * Preadmission Environment Home Alone * ADLs Independent * Equipment Walker * List name and contact numbers for known caregivers / representatives who currently or will assist patient after discharge: DEMETRI BURGESS [phone] RJ ENGLISH [phone] * Verbal permission to speak to the caregivers and representatives has been obtained from the patient. No * Community resources currently utilized None * Additional services required to return to the preadmission environment? No * Can the patient safely return to the preadmission environment? Yes * Has this patient been hospitalized within the prior 30 days at any hospital? No Coverage Notice Reviewer: [id number] Shalom Arredondo Notice Issued Date-Time: 07/16/2018 12:34 Notice Type: IM Discharge Notice Notice Delivered To: Patient Relationship to Patient: Self Seal Delivery Vehicle Officer Name: Delivery Method: HAND - Hand Delivered Milagros Days: Prior Verbal Notification: Recipient Understood Notice: Yes Recipient Signature: Yes Med Rec Note Co-signed by Attending: Coverage Notice Comment: Last DP export: 07/16/18 2:17 Patient Name: RACHEL ESCALANTE Page [id number] at 1040 All edits/amendments must be made on the electronic document DICTATION DATE: 07/18/18 1040 RECREATION ATTENDANT: ALMA 07/18/18 1040 RPT#: [id number] DC DATE:07/17/18 STATUS: DIS IN [facility] [address] [place] [address] END OF REPORT
--- NOTE | ~2018-07-13 | MORECARE ---
CASE MANAGEMENT DISCHARGE SUMMARY PATIENT: RACHEL ESCALANTE UNIT: [id number] ADM DATE: 07/13/18 AGE: 82 : 35 SEX: F ROOM[facility]BED: D[facility] AUTHOR: AGNES,DOC PHYSICIAN: REFERRING PHYSICIAN: TRIXIE BECK MD DATE OF SERVICE: 07/16/18 Discharge Plan Patient Name: RACHEL ESCALANTE Facility: [facility]:[place] : 1935 Planned Disposition: Home Anticipated Discharge Date: Discharge Date: Expected LOS: Initial Reviewer: [email or web address] Initial Review Date: 07/16/2018 Generated: 07/16/18 4:17 pm Comments DCP- Discharge Planning Updated by [email or web address]: Angela Arredondo on 07/16/18 2:[address] Patient Name: RACHEL ESCALANTE Admission Status: Elective Accout number: [id number] Admission Date: 07-13-2018 : 1935 Admission Diagnosis: Attending: TRIXIE BECK Current LOS: 3 Anticipated DC Date: Planned Disposition: Home Primary Insurance: MEDICARE A & B Discharge Planning Comments: CM SPOKE WITH PATIENT AND DAUGHTER AT BEDSIDE AFTER OBTAINING CONSENT. PATIENT STATES SHE LIVES ALONE AND SHE PLANS ON RETURNING TO HER HOME AFTER DISCHARGE. PATIENT DENIES ANY DISCHARGE NEEDS. IMM EXPLAINED AND SERVED 07/16/18 @ 1234. CM WILL CONTINUE TO FOLLOW AND ASSIST WITH DISCHARGE PLANNING / NEEDS. Process Server: Angela Arredondo DCPIA - Discharge Planning Initial Assessment Updated by [email or web address]: Angela Arredondo on 07/16/18 3:07 pm * Is the patient Alert and Oriented? Yes * How many steps to enter\exit or inside your home? * PCP STEFFEN PERALES JR. - [place] * Pharmacy [facility]. * Preadmission Environment Home Alone * ADLs Independent * Equipment Walker * List name and contact numbers for known caregivers / representatives who currently or will assist patient after discharge: DEMETRI BURGESS [phone] RJ ENGLISH [phone] * Verbal permission to speak to the caregivers and representatives has been obtained from the patient. No * Community resources currently utilized None * Additional services required to return to the preadmission environment? No * Can the patient safely return to the preadmission environment? Yes * Has this patient been hospitalized within the prior 30 days at any hospital? No Coverage Notice Reviewer: [id number] Shalom Arredondo Notice Issued Date-Time: 07/16/2018 12:34 Notice Type: IM Discharge Notice Notice Delivered To: Patient Relationship to Patient: Self Manufacturing Inspector Name: Delivery Method: HAND - Hand Delivered Milagros Days: Prior Verbal Notification: Recipient Understood Notice: Yes Recipient Signature: Yes Med Rec Note Co-signed by Attending: Coverage Notice Comment: Last DP export: 07/16/18 2:04 Patient Name: RACHEL ESCALANTE Page [id number] at 1517 All edits/amendments must be made on the electronic document DICTATION DATE: 07/16/181516 SIDER MECHANIC: ALMA 07/16/181516 RPT#: [id number] DC DATE: STATUS: ADM IN [facility] [address] [place] [address] END OF REPORT
--- NOTE | ~2018-07-13 | MORECARE ---
CASE MANAGEMENT DISCHARGE SUMMARY PATIENT: RACHEL ESCALANTE T UNIT: [id number] ADM DATE: 07/13/18 AGE: 82 : 35 SEX: F ROOM/BED: [facility] AUTHOR: FRANDY ALARCON PHYSICIAN: REFERRING PHYSICIAN: TRIXIE BECK MD DATE OF SERVICE: 07/16/18 Discharge Plan Patient Name: RACHEL ESCALANTE Facility: [facility]:[place] : 1935 Planned Disposition: Home Anticipated Discharge Date: Discharge Date: Expected LOS: Initial Reviewer: [email or web address] Initial Review Date: 07/16/2018 Generated: 07/16/18 4:04 pm Patient Name: RACHEL ESCALANTE Page 06684 at 1505 All edits/amendments must be made on the electronic document DICTATION DATE: 07/16/18 150 CELL LEAD: ALMA 07/16/18 1504 RPT#: [id number] DC DATE: STATUS: ADM IN [facility] [address] [place] [address] END OF REPORT
--- NOTE | ~2018-07-13 | OP ---
PATIENT NAME: RACHEL ESCALANTE MEDICAL RECORD: [id number] :[birth year] [facility] ADMISSION DATE:07/13/18 SURGEON: EFRAIN BECK MD DATE OF OPERATION: 07/13/2018 SURGEON: Efrain Beck MD FELT WASHING MACHINE TENDER: Anthony Harkins PROCEDURE: Right carotid endarterectomy. PREOPERATIVE DIAGNOSIS: Right carotid stenosis. POSTOPERATIVE DIAGNOSIS: Right carotid stenosis. ANESTHESIA: General endotracheal anesthesia. ESTIMATED BLOOD LOSS: 20 cc. SPECIMENS: Plaque. COMPLICATIONS: None. CONDITION: Stable. DISPOSITION: CV ICU. OPERATIVE FINDINGS: 1. Discrete short segment and severely calcified plaque, feathered well distally, but was tacked and a CorMatrix patch closure. 2. Neurologically intact to the CV ICU. OPERATIVE INDICATION: Right carotid stenosis and enlarging abdominal aortic aneurysm. PROCEDURE IN DETAIL: The patient was brought to the operative suite. General anesthesia was obtained. The patient was prepped and draped. Oblique incision was made in the right neck. Incision was taken down to the subcutaneous tissue and platysma, and flaps were created superiorly and inferiorly. The common carotid was dissected out and encircled with a vessel loop. The ansa was divided between clips. The external carotid and thyroid branch were dissected out and encircled with vessel loops. The internal carotid was dissected out distally to a region where there was no plaque. Heparin was given. After the heparin was circulated, the internal carotid was controlled with a bulldog clamp. Inflow was controlled with a vascular clamp and backbleeding of the external carotid and thyroid branch were controlled with vessel loops. EEG was monitored for 2 minutes without change. Arteriotomy was begun in the common carotid artery taken out through the region of dense calcification in the proximal internal carotid and to a relatively more normal region of internal carotid. The arteriotomy was then begun in the common carotid artery, where the plaque was divided. Eversion endarterectomy of the external carotid was performed and the plaque feathered well distally. Distally, the plaque was friable and after irrigation, it was tacked with interrupted 7-0 sutures. The remainder of loose debris from the endarterectomy bed was removed carefully. A CorMatrix patch was fashioned to the appropriate size and sutured along the edge OPERATIVE REPORT [id number] RACHEL ESCALANTE of the arteriotomy and prior to completing the anastomosis, backbleeding was allowed in all 3 major vessels as well as irrigation of the endarterectomy bed. Anastomosis was completed. Flow was restored first to the external carotid and then to the internal carotid. Interrupted sutures were used for hemostasis. Protamine was given. Thorough irrigation was undertaken. A separate drain wound was made and the drain was placed within the incision. The wound was closed in 3 layers, then subcuticular suture and the Dermabond was placed on the skin, and finally the patient's anesthesia reversed and was taken to the CV ICU in stable condition. TRANSINT:[id number] Voice Confirmation ID: [id number] DOCUMENT ID: [id number] EFRAIN BECK MD at 1156 CC: Luis Fernando PERALES MD [id number] DICTATION DATE: 07/13/18 1224 SAFETY COUNCIL DIRECTOR: 07/13/18 1237 ADM IN [facility] [address] [place] [address]
[~2018-07-13 07:50] MED LIST changes: +AUGMENTIN 875-11 TAB PO
[2018-07-14] VITALS (74 sets, daily range): BP systolic 113–165; BP diastolic 48–96
[2018-07-14 13:34] LABS: BASOPHILS 0.3 % (0-2); EOSINOPHILS 0.1 % (0-7); HEMATOCRIT 35.8 % (36.0-48.0); HEMOGLOBIN 12.4 g/dL (12-16); IMMATURE GRANULOCYTES 0.1 % (0-5); LYMPHOCYTES 10.4 % (15-50); MCH 33.2 pg (26.0-34.0); MCHC 34.6 g/dL (31.0-37.0); MCV 95.7 fL (80.0-100.0); MEAN PLATELET VOLUME 8.6 fL (7.4-10.4); MONOCYTES 6.2 % (2-11); NEUTROPHILS 82.9 % (40-80); RBC 3.74 10x6/uL (4.00-5.40); RDW 14.4 % (11.5-14.5); WBC 9.6 10x3/uL (4.8-10.8)
[2018-07-14 13:36] LABS: PLATELET COUNT 214 10x3/uL (130-400)
[2018-07-14 13:42] LABS: CALC OSMOLALITY 280 mosm/kg (275-300); CALCIUM 8.6 mg/dL (8.5-10.1); CHLORIDE - SERUM 101 mmol/L (98-107); CREATININE - SERUM 0.7 mg/dL (0.6-1.3); GLUCOSE 131 mg/dL (74-106); POTASSIUM - SERUM 3.3 mmol/L (3.5-5.1); SODIUM 139 mmol/L (136-145); UREA NITROGEN 14 mg/dL (7-18); eGFR NON AFRICAN AMERICAN 85 mL/min (90-120)
[2018-07-15] VITALS (31 sets, daily range): BP systolic 100–178; BP diastolic 51–90
[2018-07-16] VITALS (26 sets, daily range): BP systolic 120–184; BP diastolic 60–87
[2018-07-16] MEDS ORDERED: COREG6.25 MG PO (11:33)
[2018-07-16] MEDS ORDERED: HYDRALAZINE HCL25 MG PO (11:33)
[2018-07-16] MEDS ORDERED: K-DUR20 MEQ PO (11:35)
[2018-07-16] MEDS ORDERED: COLACE100 MG PO (11:36)
[2018-07-17] VITALS (16 sets, daily range): BP systolic 103–162; BP diastolic 51–79
[2018-07-17] MEDS ORDERED: COREG12.5 MG PO (09:10)
[2018-07-17] MEDS ORDERED: HYDRALAZINE HCL50 MG PO (09:10)
[2018-07-17] MEDS ORDERED: CATAPRES0.1 MG PO (09:10)
== END 2018-07-17 16:18 | disposition home or self-care (01) | DRG 38 ==
LOC: D.SDCHOLD 07:50 → D.CVICU 07:50 → D.SDCHOLD 09:00 → D.CVICU 09:41 → D.SDCHOLD 14:00 → D.CVICU 07-17 16:18
PROVIDERS: Thoracic Surgery (Cardiothoracic Vascular Surgery)
PROC: 03UM0JZ Supplement Right External Carotid Artery with Synthetic Substitute, Open Approach (ICD-10-PCS; 2018-07-13)
PROC: 03CM0ZZ Extirpation of Matter from Right External Carotid Artery, Open Approach (ICD-10-PCS; principal; 2018-07-13 09:00)
DX: I65.21 Occlusion and stenosis of right carotid artery (principal); N39.0 Urinary tract infection, site not specified; I25.10 Atherosclerotic heart disease of native coronary artery without angina pectoris; I10 Essential (primary) hypertension; E78.5 Hyperlipidemia, unspecified; I71.4 Abdominal aortic aneurysm, without rupture; Z85.3 Personal history of malignant neoplasm of breast; Z85.830 Personal history of malignant neoplasm of bone; F17.200 Nicotine dependence, unspecified, uncomplicated; R11.0 Nausea

== ENCOUNTER 2018-08-17 05:00 | Inpatient (IN) | payer MEDICARE, BC ==
--- NOTE | 2018-08-08 13:24 | HP ---
PATIENT: RACHEL ESCALANTE MEDICAL RECORD: [id number] ACCOUNT: [id number] LOCATION:[facility] : 35 ADMISSION DATE: 08/17/18 PCP: HISTORY AND PHYSICAL EXAMINATION RACHEL Krueger (82yo, F) ID# [id number]. Date/Time08/01/2018 09:[id number]//1936[facility] Dept.NPP_[facility] ClinicProviderEFRAIN BECK MDInsuranceMed Primary: MEDICARE-[place] (MEDICARE) Insurance # : [id number] PCP : STEFFEN PERALES JR Referring Provider Name : ANDREI SHERMAN Employer Name : UNKNOWN Med Secondary: BCBS-[place] (MEDICARE SUPPLEMENT) Insurance # : [id number] PCP : STEFFEN PERALES JR Referring Provider Name : ANDREI SHERMAN Employer Name : UNKNOWN Prescription: [place]BCBS - Member is eligible. Chief Complaint Followup: Carotid artery stenosis s/p RCEA 07/13/18 Patient's Care Team Primary Care Provider (): STEFFEN PERALES JR: [address] [place] [address], , Referring Provider (): ANDREI SHERMAN: , Surgical Oncologist: ANDREI SHERMAN MD: [address] [place] [address], , Patient's Pharmacies [facility] (ERX): [address] [facility] [address], , Vitals BP:142/76 sitting L arm 08/01/2018 09:55 amHR:84 08/01/2018 09:55 amHt:5 ft 5 in 08/01/2018 09:53 amAllergies Reviewed Allergies SULFA (SULFONAMIDE ANTIBIOTICS)Medications Reviewed Medications amoxicillin 875 mg-potassium clavulanate 125 mg tablet Take 1 tablet(s) every 12 hours by oral route for 30 days.06/29/18 filledPRIMEanastrozole 1 mg tablet TK 1 T PO QD07/18/18 filledPRIMEAspir-81 81 mg tablet,delayed release Take 1 tablet(s) every day by oral route.05/07/18 [facility] 40 mg tablet Take 1 tablet(s) every day by oral route.05/07/18 enteredAt[facility] Wilsoncarvedilol 12.5 mg osxxrs07/18/18 filledPRIMEcarvedilol 3.125 mg skhiov44/19/18 filledPRIMEcarvedilol 6.25 mg tablet TK 1 T PO BID04/16/18 filledPRIMEcloNIDine HCl 0.1 mg /18/18 filledPRIMEFluad 65yr up(PF)45 mcg(15 mcgx3)/0.5 mL intramuscular syringe ADM 0.5ML IM UTD1 filledsurescriptsFluzone High-Dose (PF) 180 mcg/0.5 mL intramuscular syringe ADM 0.5ML IM UTD04/13/18 filledsurescriptshydrALAZINE 50 mg ullkya53/18/18 filledPRIMEIbrance 125 mg hnuwufz32/27/18 filledPRIMEKlor-Con M20 mEq tablet,extended aryhupr72/17/18 filledPRIMElevoFLOXacin 750 mg ycrkcm73/16/18 filledPRIMElisinopril 10 mg tablet TAKE ONE TABLET BY MOUTH ONCE DAILY07/05/18 filledsurescriptslisinopril 20 mg tablet HISTORY AND PHYSICAL [id number] RACHEL ESCALANTE Take 1 tablet(s) every day by oral route.08/02/18 prescribedLAINE Stevensyrbetriq 50 mg tablet,extended release Take 1 tablet(s) every day by oral route for 14 days.06/29/18 prescribedRobandreea Montemayor MDNexIUM 24HR1 enteredAt[facility] Wilsonsimvastatin 40 mg /19/18 filledPRIMETravatan Z 0.004 % eye drops INSTILL ONE DROP IN EACH EYE AT GRAODTY17/06/18 filledsurescriptstriamcinolone acetonide 0.1 % topical gmyaumke08/11/18 filledPRIMEProblems Reviewed Problems Carotid artery stenosis - Onset: 07/11/2018 Abdominal aortic aneurysm - Onset: 05/07/2018 Family History Reviewed Family History Father- Myocardial infarctionMother- Malignant neoplastic diseaseSocial History Reviewed Social History Cardiology and General Family history of heart disease?: Y Smoking Status: Current every day smoker Smoker (1 PPD) High Cholesterol: Y High blood pressure: Y Exercise level: None Overweight: Y Obese: N Diabetes: N Alcohol intake: None Occupation: retired Surgical History Reviewed Surgical History cardiac cath w stent 2010, cardiac cath clean 05/17/17 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 HPI Post-Op Visit Reported by patient. Onset/Timing: date of surgery:; 07/13/18 Quality: procedure:; RCEA Associated Symptoms: incision healing well; no fatigue; normal appetite; normal bowel function; no constipation; no nausea; no emesis; no pain; no fever; no HISTORY AND PHYSICAL [id number] RACHEL ESCALANTE bleeding neck healing, denies neurologic symptoms No abdominal or back pain, blood pressure controlled ROS ROS as noted in the HPI Physical Exam Patient is an 82-year-old female. Post Operative Exam: General Appearance: no swelling, tenderness, or warmth and wou nd clean and dry, appropriate range of motion, and neurovascular intact. Assessment / Plan 1. Carotid artery stenosis I65.29: Occlusion and stenosis of unspecified carotid artery CAROTID STENOSIS: CARE INSTRUCTIONS Patient Instructions schedule endovascular repair abdominal aortic aneurysm Discussion Notes we discussed the rationale for surgery, alternatives, benefits, and risks. Consent given Return to Office None recorded. Encounter Sign-Off Encounter signed-off by Efrain BECK MD, 08/06/2018. Encounter performed and documented by Efrain BECK MD Encounter reviewed & signed by Efrain BECK MD on 08/06/2018 at 12:18pm EFRAIN BECK MD at 1324 CC: [id number] DICTATION DATE: 08/01/18 0950 COLOR CONSULTANT: DM 08/07/18 0954 PRE IN [facility] [address] [place] [address]
[2018-08-15 14:13] LABS: BASOPHILS 2.3 % (0-2); EOSINOPHILS 3.9 % (0-7); IMMATURE GRANULOCYTES 0.3 % (0-5); LYMPHOCYTES 29.7 % (15-50); MCH 33.1 pg (26.0-34.0); MCHC 34.2 g/dL (31.0-37.0); MCV 96.7 fL (80.0-100.0); MEAN PLATELET VOLUME 8.9 fL (7.4-10.4); MONOCYTES 5.5 % (2-11); NEUTROPHILS 58.3 % (40-80); PLATELET COUNT 213 10x3/uL (130-400); RBC 3.93 10x6/uL (4.00-5.40); RDW 14.5 % (11.5-14.5); WBC 3.8 10x3/uL (4.8-10.8)
[2018-08-15 14:25] LABS: APPEARANCE HAZY (CLEAR); BACTERIA FEW /hpf (NONE SEEN); BILIRUBIN NEGATIVE (NEGATIVE); COLOR YELLOW (YELLOW); GLUCOSE NEGATIVE (NEGATIVE); KETONE NEGATIVE (NEGATIVE); MUCUS <1+ /lpf (NONE SEEN); NITRITE NEGATIVE (NEGATIVE); PROTEIN NEGATIVE (NEGATIVE); UROBILINOGEN NORMAL (NORMAL); WHITE CELLS - URINE OCC /hpf (0-5)
[2018-08-15 14:27] LABS: APTT 24.9 SECONDS (22.8-39.4); INR 0.99 (0.85-1.17); PROTIME 12.6 SECONDS (11.6-15.0)
[2018-08-15 14:42] LABS: ALBUMIN 3.5 g/dL (3.4-5.0); ANION GAP 17.9 mmol/L (8-16); BILIRUBIN - TOTAL 0.19 mg/dL (0.2-1.3); CALCIUM 9.5 mg/dL (8.5-10.1); CREATININE - SERUM 0.9 mg/dL (0.6-1.3); POTASSIUM - SERUM 3.9 mmol/L (3.5-5.1); PROTEIN - SERUM 7.2 g/dL (6.4-8.2)
[2018-08-17] VITALS (40 sets, daily range): BP systolic 121–170; BP diastolic 43–78; BMI 24.1; BMI 23.8
[~2018-08-17] VITALS: Ht 165.1 cm; Wt 64.9 kg
[~2018-08-17 05:00] MED LIST changes: +CATAPRES0.1 MG PO; +COLACE100 MG PO; +COREG12.5 MG PO; +COREG6.25 MG PO; +HYDRALAZINE HCL25 MG PO; +HYDRALAZINE HCL50 MG PO; +K-DUR20 MEQ PO
--- NOTE | 2018-08-17 13:00 | NUR ---
FAMILY AT BE UPDATE STATUS REPORT GIVEN
--- NOTE | 2018-08-17 17:00 | NUR ---
RESTING QUIETLY AT THIS TIME ---SEE GRAPHIC
--- NOTE | 2018-08-17 22:56 | NUR ---
1914- REPORT RECIEVED, SHIFT ASSESSMENT COMPLETE, PLEASE SEE FLOW SHEETS FOR FULL DETAILS. LAYING IN BED, AWAKE AND ALERT X4. REPOSITIONING PROVIDED. S1S2 HEARD, RRR NOTED ON CM, PPP LEFT RADIAL A-LINE NOTED, ADEQUATE SENSATION AND CAP REFIL NOTED. LUNGS CLEAR, 4L NC ON AND TOLERATED WELL. DRESSINGS TO BILATERAL GROIN AREAS CDI. BS ACTIVE X4. FOLSY IN PLACE DRAINING VIA GRAVITY. DENIES PAIN/NEEDS. HEMODYNAMICALLY STABLE ATT, TITRATING CLEVIPREX TO EFFECT. WILL CPOC. 2100- ASKED FOR PAIN MEDS, BARB WAS PROVIDED WITH PM MEDS. PO TOLERATED WELL. DENIES ANY OTHER PAIN/NEEDS. BED LOW AND LOCKED, CALL LIGHT IN REACH. HEMODYNAMICALLY STABLE AND TITRATING CLEVIPREX TO EFFECT. WILL CPOC.
--- NOTE | 2018-08-17 23:00 | NUR ---
REASSESSMENT COMPLETE, PLEASE SEE FLOW SHEETS FOR DETAILS. NO ACUTE CHANGES FROM PREVIOUS ASSESSMENT TO NOTE. DENIES PAIN/NEEDS ATT. TITRATING CLEVIPREX TO EFFECT. HEMODYNAMICALLY STABLE ATT. BED LOW AND LOCKED, CALL LIGHT IN REACH. WILL CPOC.
[2018-08-18] VITALS (48 sets, daily range): BP systolic 102–154; BP diastolic 41–70; Ht 165.1 cm; Wt 64.9 kg
--- NOTE | 2018-08-18 01:00 | NUR ---
RESTING, TITRATING CLEVIPREX TO EFFECT, HEMODYNAMICALLY STABLE ATT. BED LOW AND LOCKED, CALL LIGHT IN REACH. WILL CPOC.
--- NOTE | 2018-08-18 05:00 | NUR ---
REPOSITIONING PROVIDED. TITRATING CLEVIPREX TO EFFECT. HEMODYNAMICALLY STABLE ATT. BED LOW AND LOCKED, CALL LIGHT IN REACH. WILL CPOC.
[2018-08-18 06:27] LABS: HEMATOCRIT 30.7 % (36.0-48.0); HEMOGLOBIN 10.3 g/dL (12-16); MCH 32.2 pg (26.0-34.0); MCHC 33.6 g/dL (31.0-37.0); MCV 95.9 fL (80.0-100.0); MEAN PLATELET VOLUME 9.4 fL (7.4-10.4); RBC 3.2 10x6/uL (4.00-5.40); RDW 14.7 % (11.5-14.5); WBC 5.6 10x3/uL (4.8-10.8)
[2018-08-18 06:40] LABS: CALC OSMOLALITY 276 mosm/kg (275-300); CALCIUM 7.3 mg/dL (8.5-10.1); CARBON DIOXIDE 26.7 mmol/L (21.0-32.0); CHLORIDE - SERUM 105 mmol/L (98-107); CREATININE - SERUM 0.7 mg/dL (0.6-1.3); GLUCOSE 109 mg/dL (74-106); POTASSIUM - SERUM 3.5 mmol/L (3.5-5.1); SODIUM 139 mmol/L (136-145); UREA NITROGEN 8 mg/dL (7-18); eGFR NON AFRICAN AMERICAN 85 mL/min (90-120)
--- NOTE | 2018-08-18 13:11 | OP ---
PATIENT NAME: RACHEL ESCALANTE MEDICAL RECORD: [id number] :35 LOCATION:D.[facility] D.CV08 ADMISSION DATE:08/17/18 SURGEON: EFRAIN BECK MD DATE OF OPERATION: 08/17/2018 SURGEON: Efrain Beck MD ARC WELDING MACHINE OPERATOR: CARISA Agosto MD and Anthony Harkins MD PROCEDURE PERFORMED: 1. Insertion of aortic endograft. 2. Insertion of suprarenal extension. 3. Bilateral iliac angioplasty, right iliac angioplasty times 2, left iliac angioplasty times 2. 4. Aortic angioplasty. 5. Right femoral open exposure. 6. Closure device, left femoral artery. 7. Aortogram times 3. 8. Right iliac angiogram. PREOPERATIVE DIAGNOSES: Abdominal aortic aneurysm and bilateral iliac stenosis. POSTOPERATIVE DIAGNOSES: Abdominal aortic aneurysm and bilateral iliac stenosis. ANESTHESIA: General endotracheal anesthesia. ESTIMATED BLOOD LOSS: 100 cc with no Cell Saver. COMPLICATIONS: None. SPECIMENS: None. CONDITION: Stable. DISPOSITION: [facility] ICU. OPERATIVE FINDINGS: 1. Minimal plaque in the right common femoral artery. 2. Percutaneous access, left femoral artery. 3. Bilateral kissing balloons, left 6 x 40, right 7 x 40. 4. Main body, 25 x 100, with 30-mm limbs. 5. Suprarenal extension, 28 x 95. 6. Balloon angioplasty of the endograft. 7. Left iliac limb angioplasty, 10 x 40 balloon. 8. Angiogram with no endoleak and iliac angiogram with good flow through the left iliac. INDICATION: Abdominal aortic aneurysm. PROCEDURE IN DETAIL: The patient was brought to the operative suite. General anesthesia was obtained. The patient was prepped and draped. Femoral incision was made on the right. Common femoral artery, profunda femoral and superficial femoral artery were dissected out and encircled with vessel loops. On the left, using ultrasound guidance, the left femoral artery was cannulated. Guidewire OPERATIVE REPORT [id number] RACHEL ESCALANTE was passed under fluoroscopy. Heparin was given. A left 7-Kinyarwanda sheath was placed; on the right, 8-Kinyarwanda sheath was placed. Kissing balloons, 6 on the left, 7 on the right were performed. The sheath and snare were placed on the left. On the right, the AFX introducer system was advanced, but would not easily pass through the distal aorta. Therefore, a 10-mm balloon was used and the AFX introducer system easily passed. The contralateral guidewire was grasped and the AFX bifurcated device was seated along the aortic bifurcation and then deployed. Left guidewire was exchanged for a pigtail. The suprarenal device was advanced. Aortogram was performed and then the extension was deployed. Guidewire was used to reshape the pigtail catheter and final aortogram showed no endoleaks. Pigtail was then exchanged for a guidewire and a 10-mm balloon angioplasty of the left common iliac was performed. The guidewire was again placed and the left iliac angioplasty showed no obstruction. A total of 7500 units of heparin were used. Left side was closed with an Angio-Seal device and interrupted Prolene closure of the right femoral artery. A 50 mg of protamine were given. Thorough irrigation, and the right groin closed in 3 layers including Dermabond on the skin. Palpable femoral and pedal pulses as well as good Doppler femoral pulses. Anesthesia reversed. The patient to [facility] ICU in stable condition. TRANSINT:[id number] Voice Confirmation ID: [id number] DOCUMENT ID: [id number] EFRAIN BECK MD at 1311 CC: [id number] DICTATION DATE: 08/17/18 1544 PAVER OPERATOR: 08/17/18 1711 ADM IN [place] [id number] [place] [id number]
--- NOTE | 2018-08-18 14:08 | NUR ---
1330: L RADIAL ART LINE DC'D. MANUAL PRESSURE HELD X 2 MIN. 2X2 DRESSING APPLIED. 1340: R IJ REMOVED BY Jorge MARK RN. 4X4 SECURED WITH TEGADERM APPLIED. 1345: DUTTON CATH DC'D. 1400: UP TO BATHROOM. MOD AMT LOOSE STOOL AND SMALL AMT URINE IN COMMODE.
--- NOTE | 2018-08-18 14:29 | NUR ---
AMBULATED WITH PT. USED CANE PER HOME. TOLERATED WELL.
--- NOTE | 2018-08-18 15:00 | NUR ---
DISCHARGED HOME WITH DAUGHTER. ESCORTED TO VEHICLE VIA WHEELCHAIR.
== END 2018-08-18 15:00 | disposition home or self-care (01) | DRG 269 ==
LOC: D.SDCHOLD 05:00 → D.CVICU 11:16
PROVIDERS: ADMIT Thoracic Surgery (Cardiothoracic Vascular Surgery)
PROC: 047D3ZZ Dilation of Left Common Iliac Artery, Percutaneous Approach (ICD-10-PCS; 2018-08-17)
PROC: 04V03DZ Restriction of Abdominal Aorta with Intraluminal Device, Percutaneous Approach (ICD-10-PCS; principal; 2018-08-17 07:30)
DX: I71.4 Abdominal aortic aneurysm, without rupture (principal); I65.29 Occlusion and stenosis of unspecified carotid artery; E78.5 Hyperlipidemia, unspecified; I10 Essential (primary) hypertension; F17.200 Nicotine dependence, unspecified, uncomplicated; Z85.3 Personal history of malignant neoplasm of breast; Z85.830 Personal history of malignant neoplasm of bone

== ENCOUNTER → 2018-09-17 08:19 | Outpatient (CLI) | payer MEDICARE, BC ==
[2018-08-18 12:59] VITALS: BMI 23.7
== END | disposition home or self-care (01) ==
LOC: D.CT 08:19
DX: I71.4 Abdominal aortic aneurysm, without rupture (principal)

== ENCOUNTER → 2019-04-09 09:37 | Outpatient (CLI) | payer MEDICARE, BC ==
[2018-08-18 12:59] VITALS: BMI 23.7
== END | disposition home or self-care (01) ==
LOC: D.US 03-26 10:30 → D.CT 03-26 11:30 → D.US 09:37
PROVIDERS: ATTEND Thoracic Surgery (Cardiothoracic Vascular Surgery)
DX: I71.4 Abdominal aortic aneurysm, without rupture (principal); R51 Headache; R42 Dizziness and giddiness; E11.9 Type 2 diabetes mellitus without complications; R53.1 Weakness; I65.29 Occlusion and stenosis of unspecified carotid artery

== ENCOUNTER → 2019-05-24 15:50 | Outpatient (CLI) | payer MEDICARE, BC ==
[2018-08-18 12:59] VITALS: BMI 23.7
== END | disposition home or self-care (01) ==
LOC: D.LABREF 15:50
PROVIDERS: ATTEND Urology
DX: N39.0 Urinary tract infection, site not specified (principal)

== ENCOUNTER → 2019-06-26 16:45 | Outpatient (CLI) | payer MEDICARE, BC ==
[2018-08-18 12:59] VITALS: BMI 23.7
== END | disposition home or self-care (01) ==
LOC: D.LABREF 16:45
PROVIDERS: ATTEND Urology
DX: N39.0 Urinary tract infection, site not specified (principal)

== ENCOUNTER → 2019-07-04 13:00 | Outpatient (CLI) | payer MEDICARE, BC ==
[2018-08-18 12:59] VITALS: BMI 23.7
== END | disposition home or self-care (01) ==
LOC: D.LABREF 13:00
PROVIDERS: ATTEND Urology
DX: N39.0 Urinary tract infection, site not specified (principal)